=== PATIENT | male | born 1935 | race Caucasian/White ===

== ENCOUNTER 2016-09-17 09:31 | Day surgery (SDC) | payer MEDICARE, BC ==
[~2016-09-17] VITALS: Ht 177.8 cm; Wt 105.0 kg
[~2016-09-17 09:31] MED LIST: ALLOPURINOL300 MG PO; AMBIEN5 MG PO; COLACE100 MG PO; COREG 3.1253.125 MG PO; DEXTROSE 50%-WA50 ML IVP; FISH OIL 1,2001 EACH PO; GLUCAGON 1 MG PE1 MG SUB-Q; GLUCOPHAGE500 MG PO; GLUCOSE4 GM PO; KCL - MICRO-K10 MEQ PO; LANTUS (IN100 UNIT/M SUB-Q; LASIX40 MG PO; LOVENOX 4040 MG/0.4 SUB-Q; MIRALAX17 GM PO; NEURONTIN300 MG PO; NEURONTIN600 MG PO; NORCO 5-325 MG1 TAB PO; NOVOLOG MI100 UNIT/1 SUB-Q; OCUVITE EYE +1 EACH PO; PLAVIX75 MG PO; PRAVACHOL20 MG PO; PRENATAL 1+1)(P1 TAB PO; PROTONIX40 MG PO; TYLENOL EXTRA500 MG PO; XARELTO15 MG PO; ZOFRAN4 MG/5 ML IVP; [UNRECOGNIZED DRUG - OTHER] SUB-Q
[2016-09-17] MEDS ORDERED: CPAP INH (10:57)
== END 2016-09-17 13:10 | disposition disaster alternative care site (69) ==
LOC: GEND 09:31 → GSIP 09:31 → GEND 13:10
PROC: 0DB98ZX Excision of Duodenum, Via Natural or Artificial Opening Endoscopic, Diagnostic (ICD-10-PCS; principal; 2016-09-17)
PROC: 0DB68ZX Excision of Stomach, Via Natural or Artificial Opening Endoscopic, Diagnostic (ICD-10-PCS; 2016-09-17)
PROC: 0D748ZZ Dilation of Esophagogastric Junction, Via Natural or Artificial Opening Endoscopic (ICD-10-PCS; 2016-09-17)
PROC: 0DBP8ZX Excision of Rectum, Via Natural or Artificial Opening Endoscopic, Diagnostic (ICD-10-PCS; 2016-09-17)
DX: K57.30 Diverticulosis of large intestine without perforation or abscess without bleeding (principal); K29.50 Unspecified chronic gastritis without bleeding; R13.10 Dysphagia, unspecified; K62.89 Other specified diseases of anus and rectum; I10 Essential (primary) hypertension; E78.00 Pure hypercholesterolemia, unspecified; I25.2 Old myocardial infarction; I25.10 Atherosclerotic heart disease of native coronary artery without angina pectoris; M19.90 Unspecified osteoarthritis, unspecified site; E11.9 Type 2 diabetes mellitus without complications; K21.9 Gastro-esophageal reflux disease without esophagitis; Z79.899 Other long term (current) drug therapy; Z95.5 Presence of coronary angioplasty implant and graft; Z98.890 Other specified postprocedural states
CPT/HCPCS: C1726; J2001; J7030